=== PATIENT | male | born 1995 | race Caucasian/White ===

== ENCOUNTER 2017-04-07 02:22 | Inpatient (IN) | payer OTHER ==
[~2017-04-07] VITALS: Ht 175.3 cm; Wt 64.0 kg
[2017-04-07 03:19] LABS: BASOPHIL % 0.4 % (0-2); PLATELET COUNT 247 x10^3mcL (130-400); RED CELL DISTRIBUTION WIDTH 13.4 % (11.5-14.5)
[2017-04-07 03:33] LABS: CALCIUM 8.8 mg/dL (8.5-10.1); CARBON DIOXIDE 25.5 mmol/L (21-32); CHLORIDE SERUM 105 mmol/L (98-107); CREATININE SERUM 1.1 mg/dL (0.7-1.3); GFR1 > 60 mL/min; GLUCOSE SERUM 110 mg/dL (74-106); POTASSIUM SERUM 4.1 mmol/L (3.5-5.1); SODIUM SERUM 141 mmol/L (136-145)
[2017-04-07 03:38] LABS: ALBUMIN 3.9 g/dL (3.4-5.0); ALKALINE PHOSPHATASE 91 U/L (46-116); ALT/SGPT 28 U/L (16-63); AMYLASE 240 U/L (25-115); AST/SGOT 20 U/L (15-37); BILIRUBIN TOTAL 0.9 mg/dL (0.20-1.00); LIPASE 1841 IU/L (73-393); TOTAL PROTEIN, SERUM 7.4 g/dL (6.4-8.2)
[2017-04-07 05:47] LABS: CHOLESTEROL/HDL RATIO 2.5
[2017-04-07 06:44] LABS: AMPHETAMINE QUAL UR NONE DETECTED (NEG <=1000)
[2017-04-07 07:03] VITALS: BP 127/54
[2017-04-07 09:00] VITALS: BP 122/70
[2017-04-07 16:29] VITALS: BP 113/53
[2017-04-07 21:09] VITALS: BP 126/50
[2017-04-08 04:56] VITALS: BP 123/62
[2017-04-08 05:53] LABS: BASOPHIL % 0.5 % (0-2); PLATELET COUNT 183 x10^3mcL (130-400); RED CELL DISTRIBUTION WIDTH 13.9 % (11.5-14.5)
[2017-04-08 06:12] LABS: ALKALINE PHOSPHATASE 56 U/L (46-116); ALT/SGPT 24 U/L (16-63); AST/SGOT 20 U/L (15-37); BILIRUBIN DIRECT 0.34 mg/dL (0.0-0.2); BILIRUBIN TOTAL 1.94 mg/dL (0.20-1.00); CALCIUM 8.4 mg/dL (8.5-10.1); CARBON DIOXIDE 28.9 mmol/L (21-32); CHLORIDE SERUM 107 mmol/L (98-107); CREATININE SERUM 0.7 mg/dL (0.7-1.3); GFR1 > 60 mL/min; GLUCOSE SERUM 111 mg/dL (74-106); LIPASE 507 IU/L (73-393); MAGNESIUM 2.1 mg/dL (1.8-2.4); POTASSIUM SERUM 4.4 mmol/L (3.5-5.1); SODIUM SERUM 141 mmol/L (136-145); TOTAL PROTEIN, SERUM 6.3 g/dL (6.4-8.2)
[2017-04-08 06:13] LABS: ALBUMIN 3.2 g/dL (3.4-5.0)
[2017-04-08] MEDS ORDERED: ACETAMINOPHEN-H1 TA1 PO (09:24)
[2017-04-08 09:32] VITALS: BP 121/57
[2017-04-08 16:54] VITALS: BP 126/56
[2017-04-08 21:42] VITALS: BP 117/62
[2017-04-09 05:59] LABS: BASOPHIL % 0.5 % (0-2); PLATELET COUNT 195 x10^3mcL (130-400); RED CELL DISTRIBUTION WIDTH 13.3 % (11.5-14.5)
[2017-04-09 06:05] VITALS: BP 121/63
[2017-04-09 06:32] LABS: CALCIUM 8.5 mg/dL (8.5-10.1); CARBON DIOXIDE 27.9 mmol/L (21-32); CHLORIDE SERUM 106 mmol/L (98-107); CREATININE SERUM 0.8 mg/dL (0.7-1.3); GFR1 > 60 mL/min; GLUCOSE SERUM 95 mg/dL (74-106); LIPASE 228 IU/L (73-393); MAGNESIUM 2.2 mg/dL (1.8-2.4); POTASSIUM SERUM 3.7 mmol/L (3.5-5.1); SODIUM SERUM 141 mmol/L (136-145)
[2017-04-09 14:00] VITALS: BP 121/71
[2017-04-09 15:59] VITALS: BP 121/71
== END 2017-04-09 16:20 | disposition home or self-care (01) | DRG 282 ==
LOC: ED 02:22 → MU 05:14
PROVIDERS: Emergency Medicine; ADMIT Internal Medicine Pulmonary Disease
DX: K85.20 Alcohol induced acute pancreatitis without necrosis or infection (principal); E86.9 Volume depletion, unspecified; F12.10 Cannabis abuse, uncomplicated
CPT/HCPCS: 83880; G0480; J1885; J2270; J2405; J7030; J7042; Q0092; Q9966; Q9967

== ENCOUNTER 2017-07-27 11:53 | Emergency (ER) | payer OTHER ==
[~2017-07-27] VITALS: Ht 175.3 cm; Wt 63.0 kg
[~2017-07-27 11:53] MED LIST: ACETAMINOPHEN-H1 TA1 PO
[2017-07-27 12:21] VITALS: BP 125/82; Ht 175.3 cm; Wt 63.0 kg
== END 2017-07-27 14:20 | disposition left against medical advice (07) ==
LOC: ED 11:53
DX: Z53.21 Procedure and treatment not carried out due to patient leaving prior to being seen by health care provider (principal)